=== PATIENT | male | born 1975 | race Caucasian/White ===

== ENCOUNTER 2016-06-15 21:34 | Inpatient (IN) | payer MEDICAID ==
[~2016-06-15] VITALS: Ht 177.8 cm; Wt 95.8 kg
[2016-06-15] MEDS ORDERED: FAMOTIDINE 20 MG INJ IV STA (22:32)
[2016-06-15] MEDS ORDERED: SOD CHLORIDE 0.9% 1,000 ML IV STA (22:32)
[2016-06-15] MEDS ORDERED: IBUP400T22 PO (22:54)
[2016-06-15] MEDS ORDERED: OMEP10SU PO (22:54)
[2016-06-15 23:27] LABS: BASOPHILS % 0.4 % (0.0-2.0); EOSINOPHILS # 0.2 10^3/ul (0.0-0.5); EOSINOPHILS % 2.4 % (0.0-7.0); HEMATOCRIT 19.3 % (42.0-52.0); LYMPHOCYTES # 2.1 10^3/ul (0.8-2.9); MEAN CORPUSCULAR HEMOGLOBIN 23.8 pg (29.0-33.0); MEAN CORPUSCULAR HGB CONC 32.9 g/dl (32.0-37.0); MEAN CORPUSCULAR VOLUME 72.4 fl (82.0-101.0); MEAN PLATELET VOLUME 9.6 fl (7.4-10.4); MONOCYTE # 0.6 10^3/ul (0.3-0.9); MONOCYTES % 9.3 % (0.0-11.0); NEUTROPHIL # 3.5 10^3/ul (1.6-7.5); NEUTROPHILS % 54.9 % (39.0-77.0); PLATELET COUNT 105 10^3/UL (140-440); RED BLOOD COUNT 2.67 10^6/ul (4.70-6.10); RED CELL DISTRIBUTION WIDTH 17.7 % (11.5-14.5); UNCORRECTED WBC 6.3 10^3/ul (4.8-10.8); WHITE BLOOD COUNT 6.3 10^3/ul (4.8-10.8)
[2016-06-15 23:32] LABS: POTASSIUM 4.4 mmol/L (3.5-5.1)
[2016-06-15 23:34] LABS: ALBUMIN/GLOBULIN RATIO 0.88; BILIRUBIN,INDIRECT 0.5 mg/dl (0-1.1); BILIRUBIN,TOTAL 0.5 mg/dl (0.2-1.3); CONDITION 1; CREATININE 0.59 mg/dl (0.61-1.24); LH ANALYZER COMMENTS 1; NUCLEATED RED BLOOD CELLS # 0.1 10^3/ul (0.0-0.0); TOTAL PROTEIN 6.4 g/dl (6.1-8.1)
[2016-06-15 23:35] LABS: CALCIUM 7.9 mg/dl (8.4-10.2)
[2016-06-15 23:37] LABS: HEMOGLOBIN 6.4 g/dl (14.0-18.0)
[2016-06-15] MEDS ORDERED: SOD CHLORIDE 0.9% 250 ML IV ONE (23:47)
[2016-06-15] MEDS ORDERED: SOD CHLORIDE 0.9% 1,000 ML IV SCH (23:53)
[2016-06-16] VITALS (13 sets, daily range): BP systolic 104–180; BP diastolic 53–111; PULSE 80–102; RESP 12–20; TEMP 99.3; Ht 177.8 cm; Wt 95.8 kg
[2016-06-16] MEDS ORDERED: PANTOPRAZOLE 40 MG INJ IV ONE
[2016-06-16] MEDS ORDERED: SOD CHLORIDE 0.9% 1,000 ML IV STA (00:03)
[2016-06-16] MEDS ORDERED: morphine 4 MG/ML VIAL IV STA (00:03)
--- NOTE | 2016-06-16 00:27 | ERA ---
ER Documentation Chief Complaint Date/Time DATE: 06/16/16 TIME: 00:24 Chief Complaint blood in stools x 3 days HPI This is a 40-year-old male with a history of cirrhosis, and previous upper GI bleed who presents to the emergency room for evaluation of dark stools. The patient states that he has had dark stools for the past 3 days. He does state that he is also having some abdominal pain which localizes to the epigastric region and describes as a burning sensation. The patient denies any alcohol use , came to the ER today for evaluation. ROS All systems reviewed and are negative except as per history of present illness. Medications Home Meds Reported Medications Ibuprofen* (Ibuprofen*) 400 Mg Tablet, 400 MG PO Q6H Y for PAIN, TAB 06/15/16 Omeprazole* (Prilosec*) 10 Mg Suspdr.pkt, 10 MG PO BID, PKT 06/15/16 Allergies Allergies: Coded Allergies: No Known Allergy (Unverified , 06/15/16) PMhx/Soc Medical and Surgical Hx: pt denies Medical Hx, pt denies Surgical Hx History of Surgery: No Anesthesia Reaction: No Hx Neurological Disorder: No Hx Respiratory Disorders: No Hx Cardiac Disorders: No Hx Psychiatric Problems: No Hx Miscellaneous Medical Probl: Yes (Gallstones, CIRRHOSIS) Hx Alcohol Use: No Hx Substance Use: No Hx Tobacco Use: No Smoking Status: Never smoker Physical Exam Vitals Vital Signs Date Time Temp Pulse Resp B/P Pulse Ox O2 Delivery O2 Flow Rate FiO2 06/15/16 23:25 99.0 99 17 120/82 100 Room Air 06/15/16 21:38 99.6 117 20 139/72 100 Physical Exam INITIAL VITAL SIGNS: Reviewed by me GENERAL: The patient is well developed and appropriate for usual state of health in no apparent distress HEENT: Pupils equal, round, and reactive to light. EOMI. There is no scleral icterus. NECK: C-spine is soft and supple, there is no meningismus. There is no cervical lymphadenopathy. LUNGS: Clear to auscultation bilaterally. There are no rales, wheezes or rhonchi. HEART: Tachycardic, no murmurs, clicks, rubs or gallops. ABDOMEN: The gastric tenderness to palpation, non-distended. There are bowel sounds in all four quadrants. No rebound or guarding. EXTREMITIES: There is no peripheral cyanosis or edema. No focal swelling or erythema. NEUROLOGICAL: The patient moves all four extremities with 5/5 strength. Cranial nerves II - XII are intact. Normal gait. Alert and oriented SKIN: There is no apparent rash or petechiae. HEME/LYMPHATIC: There is no evidence of excessive bruising or lymphedema. PSYCHIATRIC: The patient does not appear anxious or depressed. Result Diagram: 06/15/16229906/15/16 230 Results 24 hrs Laboratory Tests Test 06/15/16 23:00 Alanine Aminotransferase (ALT/SGPT) 82IU/L Albumin 3.0g/dl Albumin/Globulin Ratio 0.88 Alkaline Phosphatase 167IU/L Anion Gap 13 Aspartate Amino Transf (AST/SGOT) 96IU/L Basophils # Pending Basophils % Pending Blood Morphology Comment Blood Urea Nitrogen 9mg/dl Calcium Level 7.9mg/dl Carbon Dioxide Level 24mmol/L Chloride Level 103mmol/L Creatinine 0.59mg/dl Direct Bilirubin 0.00mg/dl Eosinophils # Pending Eosinophils % Pending Globulin 3.40g/dl Glucose Level 224mg/dl Hematocrit 19.3% Hemoglobin 6.4g/dl Indirect Bilirubin 0.5mg/dl Lipase 307U/L Lymphocytes # Pending Lymphocytes % Pending Mean Corpuscular Hemoglobin 23.8pg Mean Corpuscular Hemoglobin Concent 32.9g/dl Mean Corpuscular Volume 72.4fl Mean Platelet Volume 9.6fl Monocytes # Pending Monocytes % Pending Neutrophils # Pending Neutrophils % Pending Nucleated Red Blood Cells # Pending Nucleated Red Blood Cells % Pending Platelet Count 46845^3/UL Potassium Level 4.4mmol/L Red Blood Count 2.6710^6/ul Red Cell Distribution Width 17.7% Sodium Level 136mmol/L Total Bilirubin 0.5mg/dl Total Protein 6.4g/dl White Blood Count 6.310^3/ul Current Medications Medications (Trade) Dose Ordered Sig/Sharmila Route PRN Reason Start Time Stop Time Status Last Admin Dose Admin Sodium Chloride (NS) 1,000 ml @ 1,000 mls/hr Q1H STAT IV 06/15/16 22:32 06/15/16 23:31 DC 06/15/16 23:10 Famotidine 20 mg 20 mg ONCE STAT IV 06/15/16 22:32 2/8/17 22:34 DC 06/15/16 23:10 Sodium Chloride 250 ml @ 0 mls/hr Q0M ONCE IV 06/15/16 23:47 06/15/16 23:49 DC Sodium Chloride (NS) 1,000 ml @ 80 mls/hr [id number] IV 06/15/16 23:53 06/16/16 12:22 06/16/16 00:08 Ondansetron HCl (Zofran Inj) 4 mg BRIDGE ORDER PRN IV NAUSEA AND/OR VOMITING 06/16/16 00:00 06/16/16 23:59 Acetaminophen (Tylenol Tab) 650 mg ER BRIDGE PRN PO MILD PAIN/FEVER 06/16/16 00:00 06/16/16 23:59 Pantoprazole 80 mg 80 mg ONCE ONCE IV 06/16/16 00:00 06/16/16 00:01 DC 06/16/16 00:09 Sodium Chloride (NS) 1,000 ml @ 1,000 mls/hr Q1H STAT IV 06/16/16 00:03 06/16/16 01:02 Morphine Sulfate (morphine) 4 mg ONCE STAT IV 06/16/16 00:03 06/16/16 00:06 DC 06/16/16 00:11 Procedures/MDM Chest X-ray 1V Interpreted by me: Soft Tissue: No acute abnormalities Bones: No acute abnormalities Mediastinum/Cardiac Silhouette/Lungs: [No acute abnormalities] This 40-year-old male presents to the ER for evaluation of dark stools, and abdominal pain. When I evaluated this patient he did have epigastric tenderness to palpation. Does have a history of previous GI bleed. I did obtain lab work and x-ray. Lab work does show a hemoglobin of 6.4. This patient is guaiac positive on my examination. He is mildly tachycardic, was given 2 L of IV fluid, Protonix, Pepcid, morphine for pain. He will be transfused 2 units of packed red blood cells and will be placed in for admission at this time on the telemetry floor under the care of Dr. Doss. Critical Care: Excluding all billable procedures Time: 35 minutes Treatments/Evaluations: Close monitoring and treatment of unstable vital signs, cardiorespiratory, and neurologic status, while maintaining tight balance of fluid, respiratory, and cardiac interventions. Departure Diagnosis: Primary Impression: Upper GI hemorrhage Additional Impressions: Abdominal pain Occult blood in stools Anemia History of cirrhosis Condition: JOSE RAFAEL Lindsay DO Jun 16, 2016 00:26
[2016-06-16 00:50] LABS: ADD UMIC NO; URINE BILIRUBIN (Dip) NEGATIVE (NEGATIVE); URINE BLOOD (Dip) NEGATIVE (NEGATIVE); URINE COLOR YELLOW (YELLOW); URINE GLUCOSE (Dip) NEGATIVE (NEGATIVE); URINE KETONES (Dip) NEGATIVE (NEGATIVE); URINE LEUKOCYTE ESTERASE (Dip) NEGATIVE (NEGATIVE); URINE NITRITE (Dip) NEGATIVE (NEGATIVE); URINE TOTAL PROTEIN (Dip) NEGATIVE (NEGATIVE); URINE UROBILINOGEN (Dip) 0.2 E.U./dL (0.1-1.0)
--- NOTE | 2016-06-16 01:13 | RADRPT ---
PROCEDURE: CHEST - 1 VIEW CLINICAL INDICATION: 40-year-old male with chest/abdominal pain. TECHNIQUE: A single frontal AP view of the chest was performed portably. The images were reviewed on a PACS workstation. COMPARISON: Chest x-ray July 25, 2013. FINDINGS: The cardiomediastinal silhouette has a normal appearance. There is no evidence for an infiltrate. There is no evidence for congestive heart failure. There is no evidence for pneumothorax. The osseou s structures are intact. IMPRESSION: No evidence for active cardiopulmonary disease. .Zane Gonzalez MD, MD Date Time Electronically viewed and signed by .Zane Gonzalez MD, on 06/16/2016 01:12 .M/
[2016-06-16] MEDS ORDERED: ONDANSETRON 4 MG INJ IV PRN ×2 (02:00)
[2016-06-16] MEDS ORDERED: ACETAMINOPHEN 325 MG TAB PO PRN ×2 (02:00)
[2016-06-16 07:04] LABS: BASOPHILS % 0.2 % (0.0-2.0); EOSINOPHILS # 0.1 10^3/ul (0.0-0.5); EOSINOPHILS % 1.5 % (0.0-7.0); HEMATOCRIT 21.8 % (42.0-52.0); HEMOGLOBIN 7.2 g/dl (14.0-18.0); LYMPHOCYTES # 1.4 10^3/ul (0.8-2.9); LYMPHOCYTES % 24.1 % (15.0-51.0); MEAN CORPUSCULAR HEMOGLOBIN 25.2 pg (29.0-33.0); MEAN CORPUSCULAR HGB CONC 33.1 g/dl (32.0-37.0); MEAN CORPUSCULAR VOLUME 76.3 fl (82.0-101.0); MEAN PLATELET VOLUME 9.4 fl (7.4-10.4); MONOCYTE # 0.6 10^3/ul (0.3-0.9); MONOCYTES % 10.4 % (0.0-11.0); NEUTROPHIL # 3.8 10^3/ul (1.6-7.5); NEUTROPHILS % 63.8 % (39.0-77.0); PLATELET COUNT 79 10^3/UL (140-440); RED BLOOD COUNT 2.85 10^6/ul (4.70-6.10); RED CELL DISTRIBUTION WIDTH 18.6 % (11.5-14.5)
[2016-06-16 07:19] LABS: CONDITION 1; LH ANALYZER COMMENTS 1
[2016-06-16 07:24] LABS: ALBUMIN 2.5 g/dl (3.3-4.9); IRON 14 ug/dl (35-150); POTASSIUM 4.4 mmol/L (3.5-5.1)
[2016-06-16 07:26] LABS: BILIRUBIN,INDIRECT 0.8 mg/dl (0-1.1); BILIRUBIN,TOTAL 0.8 mg/dl (0.2-1.3); CREATININE 0.56 mg/dl (0.61-1.24)
[2016-06-16 07:27] LABS: ALBUMIN/GLOBULIN RATIO 0.75; CALCIUM 7.5 mg/dl (8.4-10.2); PHOSPHORUS 2.4 mg/dl (2.5-4.9); TOTAL PROTEIN 5.8 g/dl (6.1-8.1)
[2016-06-16 07:28] LABS: MAGNESIUM 1.7 mg/dl (1.7-2.5)
[2016-06-16 07:34] LABS: TOTAL IRON BINDING CAPACITY 303 ug/dl (241-421)
[2016-06-16 07:43] LABS: FERRITIN 7.3 ng/ml (17.9-464.0)
[2016-06-16] MEDS ORDERED: OCTREOTIDE 500 MCG in SOD CHLORIDE 0.9% 49 ML IV SCH (10:00)
[2016-06-16] MEDS ORDERED: SOD CHLORIDE 0.9% 250 ML IV* ONE (10:01)
--- NOTE | 2016-06-16 10:25 | HP ---
DATE OF ADMISSION: 06/15/2016 TIME SEEN: 4 a.m. CHIEF COMPLAINT: Dark stool, rectal bleed and abdominal pain. IDENTIFICATION: The patient is a 40-year-old male with a history of decompensated liver cirrhosis w ith a history of esophageal varices status post banding at least 3 times, history of pancreatitis, p eptic ulcer disease, and gallstones who presented to the emergency department with the above stated chief complaint. He stated symptoms have been going on for the past 3 days, worsening before he cam e to the ER. He has a history of GI bleed secondary to esophageal varices and has had ligation prev iously. The last time the patient was admitted here was in September of 2013 for pancreatitis, but prior to that he was admitted here for a gastrointestinal bleed secondary to esophageal varices and is sta tus post ligation. The patient sometimes uses ibuprofen for pain. When the patient presented to the ER, blood pressure was 139/72, heart rate 170, respiratory rate 20 , temperature 99.6, oxygen saturation 100% on room air. Laboratory value shows a hemoglobin of 6.4 with MCV of 72. His glucose was 224. Chest x-ray shows no active cardiopulmonary disease. The patient currently is receiving blood trans fusion and is admitted for a GI evaluation. REVIEW OF SYSTEMS: A 12 review of systems was performed and is negative except as mentioned in HPI. PAST MEDICAL HISTORY: As per HPI. PAST SURGICAL HISTORY: As per HPI. SOCIAL HISTORY: Positive for alcohol use. ALLERGIES: NO KNOWN DRUG ALLERGIES. HOME MEDICATIONS: Ibuprofen as needed. PHYSICAL EXAMINATION: VITAL SIGNS: Blood pressure 132/63, heart rate 99, respiratory rate 19, temperature 98.4, oxygen sa turation 98% on room air. GENERAL: No acute distress, alert and oriented and answering questions appropriately. HEENT: No obvious head deformity. Pupils equal, round and react to light. Extraocular muscles inta ct. CARDIOVASCULAR: Tachycardic with regular rhythm. LUNGS: Clear. ABDOMEN: Soft. There is some discomfort to deep palpation especially in the epigastric area with n o guarding or rebound tenderness, no rigidity. EXTREMITIES: No edema. NEUROLOGIC: No focal deficit. LABORATORY: Pertinent positive labs as mentioned in HPI, including AST of 96, ALT 82, alkaline phos phatase 162, lipase is slightly high at 302, hemoglobin is 6.4 with MCV of 72. IMAGING: Chest x-ray with results as mentioned in the HPI. IMPRESSION: 1. Gastrointestinal bleed, likely from bleeding esophageal varices. 2. History of decompensated liver cirrhosis with a history of esophageal varices status post bandin g x3. 3. History of peptic ulcer disease. 4. History of cholelithiasis. 5. History of pancreatitis. 6. History of alcohol abuse. 7. Abnormal liver enzymes, secondary to alcoholic liver cirrhosis. PLAN: We will keep n.p.o. with IV fluids. Will continue blood transfusion. Will check his iron pr ofile and FOBT. We will place a GI consult. He will be placed on a PPI and I do not the octreotide is warranted at this point. We will provide pain medication as needed. The patient also has a slig htly elevated lipase of 307, so likely also has a mild pancreatitis as well, so again he is going to be n.p.o. and will provide pain medication as needed. Further workup and management per clinical course. Dictated By: MELQUIADES PEDERSON/VERA Conf#: [id number] DID#: [id number]
--- NOTE | 2016-06-16 10:31 | CONS ---
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 Davison Consultation Date/Type/Reason Admit Date/Time Jun 15, 2016 at 23:54 Hx of Present Illness 40 YO M with reports of hematemesis with weakness since Monday. Pt states that previous episode happened over a year ago. During this episode, pt took pain killers and unknown medication without any relief in symptoms. Pt also reports melena stools and epigastric abdominal pain since Monday as well. Pt denies fever, chills, and diarrhea. Pt reports being abstinent from EtOH Mar 14, 2009. Pt denies new medication and smoking. Presently repeat EGD is recommended; however, patient declines procedure due to concerns over new employment. 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 Patient understands risks of not getting scope and he is willing to take that risk and states he will return if symptoms return and/or plan for outpatient EGD. Recommend PPI twice daily and Carafate 4 times daily to treat possible esophageal varix and/or gastric ulcer. Past Medical History Medical History: other (Liver cirrhosis) Past Surgical History Past Surgical Hx: endoscopy (S1 in [address] Davison) Social History Alcohol Use: sober Smoking Status: Never smoker Exam/Review of Systems Vital Signs Vitals Vital Signs Date Time Temp Pulse Resp B/P Pulse Ox O2 Delivery O2 Flow Rate FiO2 06/16/16 08:20 97 06/16/16 07:09 97.7 18 104/60 90 06/16/16 02:04 Room Air Intake and Output 06/15/16 06/15/16 06/16/16 15:00 23:00 07:00 Intake Total 700 ml Balance 700 ml Exam Constitutional: alert, oriented, well developed Psych: nl mood/affect, no complaints Head: atraumatic Eyes: EOMI, nl conjunctiva, nl lids ENMT: nl external ears & nose, nl lips & teeth, nl nasal mucosa & septum Respiratory: clear to auscultation Cardiovascular: regular rate and rhythm Gastrointestinal: non-tender, soft Musculoskeletal: nl extremities to inspection Neurological: TRAINING OFFICER II-XII intact Results Result Diagram: 06/16/16 0610 06/16/16 0610 Results 24 hrs Laboratory Tests Test 06/15/16 23:00 06/15/16 23:20 06/16/16 06:10 Alanine Aminotransferase (ALT/SGPT) 82 H 79 H Albumin 3.0 L 2.5 L Albumin/Globulin Ratio 0.88 0.75 Alkaline Phosphatase 167 H 164 H Anion Gap 13 11 Aspartate Amino Transf (AST/SGOT) 96 H 87 H Basophils # 0.0 Pending Basophils % 0.4 Pending Blood Morphology Comment Blood Urea Nitrogen 9 11 Calcium Level 7.9 L 7.5 L Carbon Dioxide Level 24 22 Chloride Level 103 107 Creatinine 0.59 L 0.56 L Differential Comment AUTO w/SCAN Direct Bilirubin 0.00 0.00 Eosinophils # 0.2 Pending Eosinophils % 2.4 Pending Globulin 3.40 H 3.30 H Glucose Level 224 H 162 Hematocrit 19.3 #L 21.8 L Hemoglobin 6.4 #*L 7.2 L Indirect Bilirubin 0.5 0.8 Lipase 307 H Lymphocytes # 2.1 Pending Lymphocytes % 33.0 Pending Mean Corpuscular Hemoglobin 23.8 L 25.2 L Mean Corpuscular Hemoglobin Concent 32.9 33.1 Mean Corpuscular Volume 72.4 L 76.3 L Mean Platelet Volume 9.6 9.4 Monocytes # 0.6 Pending Monocytes % 9.3 Pending Neutrophils # 3.5 Pending Neutrophils % 54.9 Pending Nucleated Red Blood Cells # 0.1 H Pending Nucleated Red Blood Cells % 2.0 H Pending Platelet Count 105 L 79 #L Potassium Level 4.4 4.4 Red Blood Count 2.67 #L 2.85 L Red Cell Distribution Width 17.7 H 18.6 H Sodium Level 136 136 Total Bilirubin 0.5 0.8 Total Protein 6.4 5.8 L White Blood Count 6.3 # 6.0 Urine Bilirubin NEGATIVE Urine Clarity CLEAR Urine Color YELLOW Urine Glucose NEGATIVE Urine Hemoglobin NEGATIVE Urine Ketones NEGATIVE Urine Leukocyte Esterase NEGATIVE Urine Nitrite NEGATIVE Urine Specific [place] 1.025 Urine Total Protein NEGATIVE Urine Urobilinogen 0.2 E.U./dL Urine pH 6.0 Ferritin 7.3 L Iron Level 14 L Magnesium Level 1.7 Percent Iron Saturation 5 L Phosphorus Level 2.4 L Total Iron Binding Capacity 303 Medications Medications Current Medications Sodium Chloride (NS) 1,000 ml @ 80 mls/hr [id number] IV Last administered on 00:08; Admin Dose 80 MLS/HR; Start 06/15/16 at 23:53; Stop 06/16/16 at 12:22 Ondansetron HCl (Zofran Inj) 4 mg Q6H PRN IV NAUSEA AND/OR VOMITING; Start 06/16 at 02:00 Acetaminophen 650 mg 650 mg Q6H PRN PO PAIN AND OR ELEVATED TEMP Last administered on 06/16/16 03:15; Admin Dose 650 MG; Start 06/16/16 at 02:00 Octreotide Acetate/Sodium Chloride (Sandostatin/NS) 50 ml @ 2.5 mls/hr Q20H IV ; Start 06/16/16 at 10:00 DIMITRIS RODRIGUEZ Jun 16, 2016 10:31
--- NOTE | 2016-06-16 13:45 | PN ---
Date/Time of Note Date/Time of Note DATE: 06/16/16 TIME: 13:38 Assessment/Plan VTE Prophylaxis VTE Prophylaxis Intervention: SCD's Lines/Catheters IV Catheter Type (from [facility]): Sal[facility] Urinary Cath still in place: No Assessment/Plan Assessment/Plan 1. Gastrointestinal bleed, likely from bleeding esophageal varices, patient declines EGD, on PPI and carafate, follow up with H/H 2. Anemia from GI bleeding, getting PRBC transfusion, follow up with H/H 3. Thrombocytopenia, due to splenomegaly, follow up wiht PLT 4. Alcoholic liver disease with cirrhosis with a history of esophageal varices status post banding x3.s/p TIPS 5. History of peptic ulcer disease. 6. History of cholelithiasis. 7. History of pancreatitis. 8. History of alcohol abuse. Subjective 24 Hr Interval Summary Free Text/Dictation No pain. No BM since last night Exam/Review of Systems Vital Signs Vitals Vital Signs Date Time Temp Pulse Resp B/P Pulse Ox O2 Delivery O2 Flow Rate FiO2 06/16/16 12:13 80 06/16/16 11:04 97.8 18 110/67 98 06/16/16 02:04 Room Air Intake and Output 06/15/16 06/15/16 06/16/16 15:00 23:00 07:00 Intake Total 700 ml Balance 700 ml Exam Constitutional: alert, oriented, well developed Psych: nl mood/affect, no complaints Head: atraumatic, normocephalic Eyes: EOMI, nl conjunctiva ENMT: nl external ears & nose, nl lips & teeth, nl nasal mucosa & septum Neck: non-tender, supple Respiratory: clear to auscultation, normal air movement, No congested cough, No crackles/rales, No diminished breath sounds, No intercostal retraction, No labored breathing, No other, No respirations, No tactile fremitus, No wheezing Cardiovascular: nl pulses, regular rate and rhythm, No S3, No S4, No bruits, No diastolic murmur, No edema, No gallop, No irregular rhythm, No jugular venous distention (JVD), No murmurs/extra sounds, No other, No rub, No systolic murmur Gastrointestinal: nl liver, spleen, non-tender, soft, No ascites, No bowel sounds, No distended, No firm, No hepatomegaly, No mass , No other, No rebound or guarding, No splenomegaly, No surgical scars, No tender Musculoskeletal: nl extremities to inspection Extremities: normal pulses, No calf tenderness, No clubbing, No cyanosis, No edema, No palpable cord, No pitting pedal edema, No tenderness Neurological: BENDER HELPER II-XII intact, nl mental status, nl speech, nl strength Skin: rash or lesions Lymph: nl lymph nodes Results Result Diagram: 06/16/16 0610 06/16/16 0610 Results 24 hrs Laboratory Tests Test 06/15/16 23:00 06/15/16 23:20 06/16/16 06:10 Alanine Aminotransferase (ALT/SGPT) 82 H 79 H Albumin 3.0 L 2.5 L Albumin/Globulin Ratio 0.88 0.75 Alkaline Phosphatase 167 H 164 H Anion Gap 13 11 Aspartate Amino Transf (AST/SGOT) 96 H 87 H Basophils # 0.0 0.0 Basophils % 0.4 0.2 Blood Morphology Comment Blood Urea Nitrogen 9 11 Calcium Level 7.9 L 7.5 L Carbon Dioxide Level 24 22 Chloride Level 103 107 Creatinine 0.59 L 0.56 L Differential Comment AUTO w/SCAN AUTO w/SCAN Direct Bilirubin 0.00 0.00 Eosinophils # 0.2 0.1 Eosinophils % 2.4 1.5 Globulin 3.40 H 3.30 H Glucose Level 224 H 162 Hematocrit 19.3 #L 21.8 L Hemoglobin 6.4 #*L 7.2 L Indirect Bilirubin 0.5 0.8 Lipase 307 H Lymphocytes # 2.1 1.4 Lymphocytes % 33.0 24.1 Mean Corpuscular Hemoglobin 23.8 L 25.2 L Mean Corpuscular Hemoglobin Concent 32.9 33.1 Mean Corpuscular Volume 72.4 L 76.3 L Mean Platelet Volume 9.6 9.4 Monocytes # 0.6 0.6 Monocytes % 9.3 10.4 Neutrophils # 3.5 3.8 Neutrophils % 54.9 63.8 Nucleated Red Blood Cells # 0.1 H 0.0 Nucleated Red Blood Cells % 2.0 H 0.0 Platelet Count 105 L 79 #L Potassium Level 4.4 4.4 Red Blood Count 2.67 #L 2.85 L Red Cell Distribution Width 17.7 H 18.6 H Sodium Level 136 136 Total Bilirubin 0.5 0.8 Total Protein 6.4 5.8 L White Blood Count 6.3 # 6.0 Urine Bilirubin NEGATIVE Urine Clarity CLEAR Urine Color YELLOW Urine Glucose NEGATIVE Urine Hemoglobin NEGATIVE Urine Ketones NEGATIVE Urine Leukocyte Esterase NEGATIVE Urine Nitrite NEGATIVE Urine Specific [place] 1.025 Urine Total Protein NEGATIVE Urine Urobilinogen 0.2 E.U./dL Urine pH 6.0 Ferritin 7.3 L Iron Level 14 L Large Platelets FEW Magnesium Level 1.7 Percent Iron Saturation 5 L Phosphorus Level 2.4 L Total Iron Binding Capacity 303 Medications Medications Current Medications Ondansetron HCl (Zofran Inj) 4 mg Q6H PRN IV NAUSEA AND/OR VOMITING; Start 06/16 at 02:00 Acetaminophen 650 mg 650 mg Q6H PRN PO PAIN AND OR ELEVATED TEMP Last administered on 06/16/16t 03:15; Admin Dose 650 MG; Start 06/16/16 at 02:00 Octreotide Acetate/Sodium Chloride (Sandostatin/NS) 50 ml @ 2.5 mls/hr Q20H IV ; Start 06/16/16 at 10:00 RAJIV MEDINA MD Jun 16, 2016 13:45
[2016-06-16 19:58] LABS: HEMATOCRIT 23.9 % (42.0-52.0); HEMOGLOBIN 7.6 g/dl (14.0-18.0)
== END 2016-06-16 21:30 | disposition left against medical advice (07) | DRG 432 ==
LOC: E/R 21:34 → TEL 23:54
PROVIDERS: ADMIT Internal Medicine; ATTEND Internal Medicine
PROC: 30233N1 Transfusion of Nonautologous Red Blood Cells into Peripheral Vein, Percutaneous Approach (ICD-10-PCS; principal; 2016-06-15)
DX: K70.30 Alcoholic cirrhosis of liver without ascites (principal); I85.11 Secondary esophageal varices with bleeding; D69.59 Other secondary thrombocytopenia; D50.0 Iron deficiency anemia secondary to blood loss (chronic); F10.20 Alcohol dependence, uncomplicated
CPT/HCPCS: 36415; 36430; 71010; 80053; 81003; 82270; 82728; 83540; 83690; 83735; 84100; 85014; 85018; 85025; 86850; 86900; 86901; 86920; 96374; 96375; C9113; J2270; J2354; J2405; J7030; J7040; P9016

== ENCOUNTER 2016-06-22 21:37 | Emergency (ER) | payer MEDICAID ==
[~2016-06-22] VITALS: Ht 177.8 cm; Wt 98.0 kg
[~2016-06-22 21:37] MED LIST: IBUP400T22 PO
[2016-06-22 21:41] VITALS: Ht 177.8 cm; Wt 98.0 kg
--- NOTE | 2016-06-22 22:33 | ERD ---
ER Documentation Chief Complaint Date/Time DATE: 06/22/16 TIME: 22:27 Chief Complaint diffuse abd pain x 4 days. feels bloated HPI 40-year-old male presents to emergency department for complaints of generalized abdominal pain and diffuse swelling for the last 4 days. Patient has history of liver cirrhosis, history of ascites before. Patient currently is not following up any liver specialist. Currently does not have a primary care doctor. Patient does not take any medications at this time. Patient does not have any fever or chills. Patient denies any nausea or vomiting. Patient denies any flank pain. Patient denies any lower leg swelling. Patient denies any blood in the stool or black stool. Patient denies vomiting blood. Patient describes the pain as bloating dull pain, 3/10 scale, and is not better or worse with anything. Patient denies any shortness of breath. Patient denies any chest pain. ROS All systems reviewed and are negative except as per history of present illness. Medications Home Meds Reported Medications Ibuprofen* (Ibuprofen*) 400 Mg Tablet, 400 MG PO Q6H Y for PAIN, TAB 06/15/16 Allergies Allergies: Coded Allergies: No Known Allergy (Unverified , 06/15/16) PMhx/Soc History of Surgery: Yes (esophageal banding x3) Anesthesia Reaction: No Hx Neurological Disorder: No Hx Respiratory Disorders: No Hx Cardiac Disorders: Yes (GIB) Hx Psychiatric Problems: No Hx Miscellaneous Medical Probl: Yes (liver cirrhosis) Hx Alcohol Use: Yes (sober for 9 yrs) Hx Substance Use: No Hx Tobacco Use: No FmHx Family History: No coronary disease, No diabetes, No other Physical Exam Vitals Vital Signs Date Time Temp Pulse Resp B/P Pulse Ox O2 Delivery O2 Flow Rate FiO2 06/22/16 21:41 98.3 102 20 140/71 100 Physical Exam GENERAL: The patient is well developed and appropriate for usual state of health, in no apparent distress. CHEST: Clear to auscultation bilaterally. There are no rales, wheezes or rhonchi. HEART: Regular rate and rhythm. No murmurs, clicks, rubs or gallops. No S3 or S4. ABDOMEN: Soft, mildly distended but nontender. Good bowel sounds. No rebound or guarding. No gross peritonitis. No gross organomegaly or masses. No Vargas sign or McBurney point tenderness. BACK: No midline or flank tenderness. EXTREMITIES: Equal pulses bilaterally. There is no peripheral clubbing, cyanosis or edema. No focal swelling or erythema. Full range of motion. Grossly neurovascularly intact. NEURO: Alert and oriented. Cranial nerves 2-12 intact. Motor strength in all 4 extremities with 5/5 strength. Sensation grossly intact. Normal speech and gait. SKIN: There is no apparent rash or petechia. The skin is warm and dry. HEMATOLOGIC AND LYMPHATIC: There is no evidence of excessive bruising or lymphedema. No gross cervical, axillary, or inguinal lymphadenopathy. Result Diagram: 06/22/16221406/22/162214 Results 24 hrs Laboratory Tests Test 06/22/16 22:15 Alanine Aminotransferase (ALT/SGPT) 51IU/L Albumin 3.0g/dl Albumin/Globulin Ratio 0.88 Alkaline Phosphatase 201IU/L Anion Gap 14 Aspartate Amino Transf (AST/SGOT) 46IU/L Basophils # 10^3/ul Basophils % % Blood Morphology Comment Blood Urea Nitrogen 8mg/dl Calcium Level 8.1mg/dl Carbon Dioxide Level 26mmol/L Chloride Level 102mmol/L Creatinine 0.62mg/dl Direct Bilirubin 0.00mg/dl Eosinophils # 10^3/ul Eosinophils % % Globulin 3.40g/dl Glucose Level 215mg/dl Hematocrit 23.4% Hemoglobin 7.7g/dl Indirect Bilirubin 0.5mg/dl Lipase 150U/L Lymphocytes # 10^3/ul Lymphocytes % % Mean Corpuscular Hemoglobin 26.5pg Mean Corpuscular Hemoglobin Concent 32.8g/dl Mean Corpuscular Volume 80.7fl Mean Platelet Volume 9.3fl Monocytes # 10^3/ul Monocytes % % Neutrophils # 10^3/ul Neutrophils % % Nucleated Red Blood Cells # 10^3/ul Platelet Count 9410^3/UL Potassium Level 4.1mmol/L Red Blood Count 2.9110^6/ul Red Cell Distribution Width 20.9% Sodium Level 138mmol/L Total Bilirubin 0.5mg/dl Total Protein 6.4g/dl Urine Bilirubin NEGATIVE Urine Clarity CLEAR Urine Color YELLOW Urine Glucose NEGATIVE% Urine Hemoglobin NEGATIVE Urine Ketones TRACE Urine Leukocyte Esterase NEGATIVE Urine Nitrite NEGATIVE Urine Specific [place] >=1.030 Urine Total Protein NEGATIVE Urine Urobilinogen 0.2 E.U./dL Urine pH 6.0 White Blood Count 3.710^3/ul I discussed the laboratory tests results with my attending physician, Dr. Keyes , upon discussion with the case, patient needs to see outpatient agriscience instructor specialist, this time, paracentesis is not necessary, patient does not have any shortness of breath, patient's ascites is not causing respiratory distress and abdomen is not that distended that needs to have margin stat paracentesis. Patient was counseled that he needs to see a agriscience instructor specialist, possible outpatient drainage of fluid from abdomen. This is as per recommendation by my attending physician, Dr. Keyes. Laboratory test results was also reviewed with him. Patient has pancytopenia which likely is consistent with chronic liver cirrhosis. Procedures/MDM Medical Decision Making: THE patient's abdominal pain is most likely from the buildup of possible third spacing fluid in the abdomen, at this time, it is not greatly distended that needs to be drained at this time, as per recommendation by my attending physician, Dr. Keyes, outpatient management is appropriate at this time, possibly outpatient radiology intervention for removal of fluids. Patient is to see hepatology specialist for further management of cirrhosis. Patient does not have any active bleeding at this time, patient has chronic pancytopenia. Most likely this is from his liver cirrhosis. Patient appears well and is hemodynamically stable. No symptoms of hemodynamic instability. There is low suspicion for abdominal emergencies at this time. Patients abdominal exam is normal at this time. As per discussion with Dr. Keyes, radiology exam is not indicated at this time, no specific abdominal tenderness noted.. There is low suspicion for appendicitis, cholecystitis, abdominal aortic aneurysms or peritonitis at this time. There is low suspicion for sepsis. Patient appears well and is hemodynamically stable. Disposition: Home. Condition: Stable Prescription for ferrous sulfate, Colace, tramadol Instructions: Patient is advised to take medications as prescribed. Patient is advised to rest, avoid excessive fluid intake, see liver specialist. Patient is advised that if symptoms are worse, severe abdominal pain, uncontrolled vomiting , high fever, severe flank pain, worst signs and symptoms, to return to the emergency department immediately. Otherwise, patient can follow up with primary care doctor in 5-7 days. Establish primary care and see hepatic specialist, resources were given to the patient. Return for any worsening symptoms Departure Diagnosis: Primary Impression: Abdominal pain Abdominal location: generalized Qualified Code: R10.84 - Generalized abdominal pain Additional Impressions: Pancytopenia History of cirrhosis of liver Condition: Stable Patient Instructions: Abdominal Pain, Cirrhosis of the Liver Additional Instructions: Patient is advised to take medications as prescribed. Patient is advised to rest , avoid excessive fluid intake, see liver specialist. Patient is advised that if symptoms are worse, severe abdominal pain, uncontrolled vomiting, high fever , severe flank pain, worst signs and symptoms, to return to the emergency department immediately. Otherwise, patient can follow up with primary care doctor in 5-7 days. Establish primary care and see hepatic specialist, resources were given to the patient. Return for any worsening symptoms LYNNETTE RODRIGUEZ NP Jun 22, 2016 22:33
[2016-06-22 23:11] LABS: POTASSIUM 4.1 mmol/L (3.5-5.1)
[2016-06-22 23:13] LABS: ALBUMIN/GLOBULIN RATIO 0.88; BILIRUBIN,INDIRECT 0.5 mg/dl (0-1.1); BILIRUBIN,TOTAL 0.5 mg/dl (0.2-1.3); CREATININE 0.62 mg/dl (0.61-1.24); HEMATOCRIT 23.4 % (42.0-52.0); HEMOGLOBIN 7.7 g/dl (14.0-18.0); MEAN CORPUSCULAR HEMOGLOBIN 26.5 pg (29.0-33.0); MEAN CORPUSCULAR HGB CONC 32.8 g/dl (32.0-37.0); MEAN CORPUSCULAR VOLUME 80.7 fl (82.0-101.0); MEAN PLATELET VOLUME 9.3 fl (7.4-10.4); PLATELET COUNT 94 10^3/UL (140-440); RED BLOOD COUNT 2.91 10^6/ul (4.70-6.10); RED CELL DISTRIBUTION WIDTH 20.9 % (11.5-14.5); TOTAL PROTEIN 6.4 g/dl (6.1-8.1); UNCORRECTED WBC 3.7 10^3/ul (4.8-10.8); WHITE BLOOD COUNT 3.7 10^3/ul (4.8-10.8)
[2016-06-22 23:14] LABS: CALCIUM 8.1 mg/dl (8.4-10.2)
[2016-06-22 23:18] LABS: ADD UMIC NO; URINE BILIRUBIN (Dip) NEGATIVE (NEGATIVE); URINE BLOOD (Dip) NEGATIVE (NEGATIVE); URINE COLOR YELLOW (YELLOW); URINE GLUCOSE (Dip) NEGATIVE (NEGATIVE); URINE KETONES (Dip) TRACE (NEGATIVE); URINE LEUKOCYTE ESTERASE (Dip) NEGATIVE (NEGATIVE); URINE NITRITE (Dip) NEGATIVE (NEGATIVE); URINE TOTAL PROTEIN (Dip) NEGATIVE (NEGATIVE); URINE UROBILINOGEN (Dip) 0.2 E.U./dL (0.1-1.0)
[2016-06-22 23:22] LABS: CONDITION 1; LH ANALYZER COMMENTS 1; SUSPECT 1
[2016-06-22] MEDS ORDERED: TRAM50TA2 PO (23:36)
[2016-06-22] MEDS ORDERED: DOCU-144 PO (23:36)
[2016-06-22] MEDS ORDERED: FER325 PO (23:36)
[2016-06-23 00:02] VITALS: BP 115/79; PULSE 68; RESP 18; TEMP 98.3
[2016-06-23 00:40] LABS: EOSINOPHILS # 0.2 10^3/ul (0.0-0.5); LYMPHOCYTES # 0.9 10^3/ul (0.8-2.9); MONOCYTE # 0.3 10^3/ul (0.3-0.9); NEUTROPHIL # 2.4 10^3/ul (1.6-7.5); PLATELET ESTIMATE PLT APPEAR DECREASED
== END 2016-06-23 00:04 | disposition home or self-care (01) ==
LOC: FTE 21:37
DX: R10.84 Generalized abdominal pain (principal); D61.818 Other pancytopenia; K74.60 Unspecified cirrhosis of liver
CPT/HCPCS: 36415; 80053; 81003; 83690; 85025; Z7502; 99283

== ENCOUNTER 2016-12-19 13:30 | Inpatient (IN) | payer MEDICAID ==
[2016-12-19] VITALS (14 sets, daily range): BP systolic 108–134; BP diastolic 53–83; PULSE 89–106; RESP 13–21; Ht 172.7 cm; Wt 87.8 kg
[~2016-12-19] VITALS: Ht 172.7 cm; Wt 87.8 kg
[~2016-12-19 13:30] MED LIST changes: +DOCU-144 PO; +FER325 PO; +TRAM50TA2 PO
--- NOTE | 2016-12-19 14:41 | ERA ---
ER Documentation Chief Complaint Date/Time DATE: 12/19/16 TIME: 14:40 Chief Complaint Bloody stool HPI The patient is a 41-year-old male, presenting to the ER because of bloody stool for the last 4 days, worse today. He has similar symptoms previously found GI bleed. He denies fever, chills, neck pain, chest pain, dyspnea, complaints of epigastric abdominal pain, denies nausea, vomiting, dysuria, diarrhea. He does not smoke nor drink. He did have EGD about 2 years ago and was admitted recently about 6 months ago for recurrent GI bleed Past medical history: Cirrhosis, history of GI bleed, anemia, history of, cytopenia, peptic ulcer disease, cholelithiasis, history of pancreatitis Past medical history: History of esophageal banding ROS All systems reviewed and are negative except as per history of present illness. Medications Home Meds Discontinued Reported Medications Ibuprofen* (Ibuprofen*) 400 Mg Tablet, 400 MG PO Q6H Y for PAIN, TAB 06/15/16 Discontinued Scripts Tramadol HCl (Tramadol HCl) 50 Mg Tablet, 50 MG PO Q6 Y for SEVERE PAIN LEVEL 7- 10, #20 TAB Prov:LYNNETTE RODRIGUEZ [employer]ACLE ENGINEER 06/22/16 Docusate Sodium* (Colace*) 100 Mg Capsule, 100 MG PO TID, #30 CAP Prov:LYNNETTE RODRIGUEZ ORACLE ENGINEER 06/22/16 Ferrous Sulfate* (Ferrous Sulfate*) 325 Mg Tabec, 325 MG PO BID, #60 TAB Prov:LYNNETTE RODRIGUEZ [employer]ACLE ENGINEER 06/22/16 Allergies Allergies: Coded Allergies: No Known Allergy (Unverified , 12/19/16) PMhx/Soc History of Surgery: Yes (esophageal banding x3) Anesthesia Reaction: No Hx Neurological Disorder: No Hx Respiratory Disorders: No Hx Cardiac Disorders: Yes (GIB) Hx Psychiatric Problems: No Hx Miscellaneous Medical Probl: Yes (liver cirrhosis) Hx Alcohol Use: Yes (sober for 9 yrs) Hx Substance Use: No Hx Tobacco Use: No Smoking Status: Never smoker Physical Exam Vitals Vital Signs Date Time Temp Pulse Resp B/P Pulse Ox O2 Delivery O2 Flow Rate FiO2 12/19/16 13:39 99.2 106 18 141/79 100 Physical Exam Const: No acute distress. Head: Atraumatic. Eyes: Icteric Conjunctiva.Pale ENT: Normal External Ears, Nose and Mouth. Neck: Full range of motion. No meningismus. Resp: Clear to auscultation bilaterally. Cardio: Regular rate and rhythm. Abd: Soft, non distended, normal bowel sounds, mild epigastric tender.. No rigidity, rebound, CVA tenderness Skin: No petechiae or rashes. Back: No midline or flank tenderness. Ext: No cyanosis, or edema. Neur: Awake and alert. No focal deficit Psych: Normal Mood and Affect. Result Diagram: 12/19/16 1501 12/19/16 1501 Results 24 hrs Laboratory Tests Test 12/19/16 14:00 12/19/16 15:01 Iron Level 85ug/dl Total Iron Binding Capacity 364ug/dl Percent Iron Saturation 23% SAT White Blood Count 7.710^3/ul Red Blood Count 3.6110^6/ul Hemoglobin 6.7g/dl Hematocrit 22.5% Mean Corpuscular Volume 62.3fl Mean Corpuscular Hemoglobin 18.6pg Mean Corpuscular Hemoglobin Concent 29.8g/dl Red Cell Distribution Width 21.9% Platelet Count 8810^3/UL Mean Platelet Volume fl Neutrophils % % Segmented Neutrophils % (Manual) 65% Lymphocytes % % Lymphocytes % (Manual) 29% Monocytes % % Monocytes % (Manual) 4% Eosinophils % % Eosinophils % (Manual) 2% Basophils % % Nucleated Red Blood Cells % 1% Neutrophils # (Manual) 10^3/ul Absolute Lymphocytes (Manual) 2.210^3/ul Lymphocytes # 10^3/ul Monocytes # 10^3/ul Absolute Monocytes (Manual) 0.310^3/ul Eosinophils # 10^3/ul Basophils # 10^3/ul Nucleated Red Blood Cells # 10^3/ul Platelet Estimate DECREASED Polychromasia 1+ Hypochromasia 1+ Poikilocytosis 1+ Anisocytosis 2+ Microcytosis 2+ Prothrombin Time 16.5Sec Prothrombin Time Ratio 1.3 INR International Normalized Ratio 1.32 Activated Partial Thromboplast Time 31.3Sec Sodium Level 135mmol/L Potassium Level 4.2mmol/L Chloride Level 105mmol/L Carbon Dioxide Level 25mmol/L Anion Gap 9 Blood Urea Nitrogen 17mg/dl Creatinine 0.60mg/dl Glucose Level 172mg/dl Calcium Level 8.5mg/dl Total Bilirubin 0.8mg/dl Direct Bilirubin 0.00mg/dl Indirect Bilirubin 0.8mg/dl Aspartate Amino Transf (AST/SGOT) 55IU/L Alanine Aminotransferase (ALT/SGPT) 65IU/L Alkaline Phosphatase 119IU/L Total Protein 6.5g/dl Albumin 3.2g/dl Globulin 3.30g/dl Albumin/Globulin Ratio 0.96 Lipase 238U/L Ethyl Alcohol Level < 10.0mg/dl Procedures/MDM UA is pending [place] [id number] Radiology Main Line: [phone] DIAGNOSTIC IMAGING REPORT Patient: DAIJA DUKE : 1975 Age: 41 Sex: M MR #: [id number] DOS: 12/19/16 1418 Ordering MD: ASIM BHATT PA-C Location: E/R Room/Bed: PROCEDURE: XR Chest AP portable CLINICAL INDICATION: Abdominal pain TECHNIQUE: An AP portable radiograph of the chest was submitted. COMPARISON: 06/16/2016 FINDINGS: Support Hardware: None Cardiovascular: The cardiovascular silhouette appears unremarkable. Lung Smith: The lung smith appear clear with no nodule, alveolar infiltrate, or interstitial prominence evident. Pleural Spaces: No pneumothorax or pleural effusion is identified. Osseous Structures: The osseous structures appear intact. Soft Tissues: The soft tissues appear unremarkable. IMPRESSION: Stable and unremarkable portable chest. Physician Payton Date Time Electronically viewed and signed by Physician Payton on 12/19/2016 15:28 RH/ CC: ASIM BHATT PA-C MEDICAL MAKING DECISION: The patient is a 41-year-old male, presenting to the ER because of acute gastrointestinal bleeding, most likely upper gastrointestinal bleeding due to esophageal varices. I have ordered to transfuse him 2 units of packed red blood cell. He is able to go to telemetry and will need to have emergent EGD for further evaluation The differential diagnoses considered include but are not limited to gastritis, peptic ulcer disease, esophageal varices, [place]-Car[place] tear, carcinoma, polyp , hemorrhoid, fissure, diverticulosis, angiodysplasia. Critical Care: Time: 35 minutes excluding all billable procedures. Treatments/Evaluations: Close monitoring and treatment of unstable vital signs, cardiorespiratory, and neurologic status, while maintaining tight balance of fluid, respiratory, and cardiac interventions. Departure Diagnosis: Primary Impression: GI bleed Condition: Stable Comments I discussed the findings with the patient. I discussed the patient with the on- call hospitalist Dr. Bhatt at who was made aware of the lab, the treatment, the patient condition. The patient is admitted to [facility] Triana MD Dec 19, 2016 14:41
--- NOTE | 2016-12-19 15:29 | RADRPT ---
PROCEDURE: XR Chest AP portable CLINICAL INDICATION: Abdominal pain TECHNIQUE: An AP portable radiograph of the chest was submitted. COMPARISON: 06/16/2016 FINDINGS: Support Hardware: None Cardiovascular: The cardiovascular silhouette appears unremarkable. Lung Sanchez: The lung sanchez appear clear with no nodule, alveolar infiltrate, or interstitial promi nence evident. Pleural Spaces: No pneumothorax or pleural effusion is identified. Osseous Structures: The osseous structures appear intact. Soft Tissues: The soft tissues appear unremarkable. IMPRESSION: Stable and unremarkable portable chest. Physician Payton Date Time Electronically viewed and signed by Franca Haque Physician on 12/19/2016 15:28 RH/
[2016-12-19 15:39] LABS: ABNORMAL IP MESSAGE 1; HEMATOCRIT 22.5 % (42.0-52.0); MEAN CORPUSCULAR HEMOGLOBIN 18.6 pg (29.0-33.0); MEAN CORPUSCULAR HGB CONC 29.8 g/dl (32.0-37.0); MEAN CORPUSCULAR VOLUME 62.3 fl (82.0-101.0); NUCLEATED RED BLOOD CELLS% 0.3 /100WBC (0.0-0.0); PLATELET COUNT 88 10^3/UL (140-415); POSITIVE DIFF @See below; RED BLOOD COUNT 3.61 10^6/ul (4.70-6.10); RED CELL DISTRIBUTION WIDTH 21.9 % (11.5-14.5); WHITE BLOOD COUNT 7.7 10^3/ul (4.8-10.8)
[2016-12-19 15:45] LABS: HEMOGLOBIN 6.7 g/dl (14.0-18.0)
[2016-12-19 15:54] LABS: INR 1.32; PROTIME 16.5 Sec (12.2-14.2); PT RATIO 1.3
[2016-12-19 15:55] LABS: PARTIAL THROMBOPLASTIN TIME 31.3 Sec (25.0-35.0)
[2016-12-19 15:58] LABS: ALANINE AMINOTRANSFERASE 65 IU/L (13-69); ALBUMIN 3.2 g/dl (3.3-4.9); ALBUMIN/GLOBULIN RATIO 0.96; ALKALINE PHOSPHATASE 119 IU/L (42-121); ANION GAP 9 (8-16); ASPARTATE AMINO TRANSFERASE 55 IU/L (15-46); BILIRUBIN,INDIRECT 0.8 mg/dl (0-1.1); BILIRUBIN,TOTAL 0.8 mg/dl (0.2-1.3); BLOOD UREA NITROGEN 17 mg/dl (7-20); CALCIUM 8.5 mg/dl (8.4-10.2); CARBON DIOXIDE 25 mmol/L (21-31); CHLORIDE 105 mmol/L (97-110); GLUCOSE 172 mg/dl (70-220); POTASSIUM 4.2 mmol/L (3.5-5.1); SODIUM 135 mmol/L (135-144); TOTAL PROTEIN 6.5 g/dl (6.1-8.1)
[2016-12-19 15:59] LABS: ETHANOL < 10.0 mg/dl
[2016-12-19 16:19] LABS: ANISOCYTOSIS 2+ (0-0); EOSINOPHILS % (M) 2 % (0-7); ERYTHROBLAST% (NRBC) (M) 1 % (0-0); HYPOCHROMASIA 1+ (0-0); MICROCYTOSIS 2+ (0-0); MONOCYTES % (M) 4 % (0-11); PLATELET ESTIMATE DECREASED; POIKILOCYTOSIS 1+ (0-0); POLYCHROMASIA 1+ (0-0)
--- NOTE | 2016-12-19 16:58 | HP ---
Date/Time of Note Date/Time of Note DATE: 12/19/16 TIME: 16:50 Assessment/Plan VTE Prophylaxis VTE Prophylaxis Intervention: SCD's Assessment/Plan Chief Complaint/Hosp Course Impression and plan 1. GI bleed. Patient with reported multiple bloody bowel movements. Placed on Protonix and Carafate for now. City Recorder to be consulted. Transfuse PRBC. Monitor serial H&H. 2. Anemia from #1. Monitor H&H. Patient transfused PRBC. 3. Thrombocytopenia. Likely secondary to underlying history of alcoholic liver cirrhosis. Monitor H&H for now. Monitor level. Transfuse blood products as needed. 4. History of alcoholic liver disease. No further reports of alcohol consumption. Monitor for now. 5. History of esophageal varices status post banding and TIPS. City Recorder to be consulted. We will follow-up 6. History of GERD. Start on PPI medication. admission process time is greater than 40 minutes Discussed plan of care with Dr. Gallego Problems: HPI/ROS Admit Date/Time Admit Date/Time Hx of Present Illness This is a 41-year-old male with history of alcoholic liver disease with cirrhosis with history of esophageal varices status post banding 3 as well as TIPS procedure, peptic ulcer disease, cholelithiasis, alcohol abuse (quit 9 years ago), pancreatitis, anemia from GI bleed, who came to [facility] due to reports of bloody stool since December 16, 2016. Of note patient was previously admitted and discharged on June 2016 where he came again for lower GI bleed and bloody stool however did not receive EGD even though recommended due to reports of concerns of his employment. Of note patient did state that he took Protonix and Carafate after his discharge for 30 days but never refilled his prescriptions. Patient does again come to [facility] with similar presentation with bloody stool that has worsened for the past 4 days as well as epigastric pain. Patient was seen with a hemoglobin of 6.7 and hematocrit of 22.5. He was slightly tachycardic likely secondary to his anemia. Patient denies any chest pain or shortness of breath however does report some epigastric pain. He does report having history of GERD. Initial chest x-ray was noted to be unremarkable. We will evaluate him for the aformentiond issues. ROS 12 point review of systems obtained and entirely negative except as mentioned in the history of present illness PMH/Family/Social Past Medical History Medical/surgical history alcoholic liver disease with cirrhosis with history of esophageal varices status post banding 3 as well as TIPS procedure, peptic ulcer disease, cholelithiasis, alcohol abuse (quit 9 years ago), pancreatitis, anemia from GI bleed, Past Surgical History Past Surgical Hx: endoscopy Family History Significant Family History: no pertinent family hx Social History Alcohol Use: other (Previous alcohol drinker) Smoking Status: Never smoker Drug Use: none Exam/Review of Systems Vital Signs Vitals Vital Signs Date Time Temp Pulse Resp B/P Pulse Ox O2 Delivery O2 Flow Rate FiO2 12/19/16 16:39 104 16 118/78 98 Room Air 12/19/16 13:39 99.2 Exam Constitutional: alert, oriented Psych: anxiety Head: normocephalic Neck: supple Respiratory: normal air movement Cardiovascular: regular rate and rhythm Gastrointestinal: soft, tender (More in epigastric area) Musculoskeletal: nl extremities to inspection, nl gait and stance Extremities: normal pulses Neurological: CERTIFIED MEDICAL ASST II-XII intact, nl mental status, nl speech Skin: nl turgor Labs Result Diagram: 12/19/16 1501 12/19/16 1501 Medications Medications Current Medications Sodium Chloride (NS) 1,000 ml @ 60 mls/hr [id number] IV ; Start 12/19/16 at 16:33 Ondansetron HCl (Zofran Inj) 4 mg Q6H PRN IV NAUSEA AND/OR VOMITING; Start at 17:00 Acetaminophen (Tylenol Tab) 650 mg Q6H PRN PO PAIN LEVEL 1-3 OR FEVER; Start at 17:00 Acetaminophen (Tylenol Supp) 650 mg Q6H PRN [place] PAIN LEVEL 1-3 OR FEVER; Start 12/19/16 at 17:00 Acetaminophen/ Hydrocodone Bitart ([place] (5/325)) 1 tab Q6H PRN PO MODERATE PAIN LEVEL 4-6; Start 12/19/16 at 17:00 Acetaminophen/ Hydrocodone Bitart ([place] (5/325)) 2 tab Q6H PRN PO SEVERE PAIN LEVEL 7-10; Start 12/19/16 at 17:00 Morphine Sulfate (morphine) 2 mg Q4H PRN IV SEVERE PAIN LEVEL 7-10; Start 12/19 at 17:00 Docusate Sodium (Colace) 100 mg Q12H PRN PO CONSTIPATION; Start 12/19/16 at 17: 00 Pantoprazole (Protonix Iv) 40 mg BID@06,18 IV ; Start 12/19/16 at 18:00 Sucralfate (Carafate) 1 gm ONCE ONCE PO ; Start 12/19/16 at 17:00; Stop at 17:01 DYAN STAFFORD Dec 19, 2016 16:58
[2016-12-19] MEDS ORDERED: ACETAMINOPHEN 325 MG TAB PO PRN (17:00)
[2016-12-19] MEDS ORDERED: ONDANSETRON 4 MG INJ IV PRN (17:00)
[2016-12-19] MEDS ORDERED: SUCRALFATE 1 GM TAB PO ONE (17:00)
[2016-12-19] MEDS ORDERED: NACL 0.9% 3 ML SYG IV SCH (17:00)
[2016-12-19] MEDS ORDERED: DOCUSATE SODIUM 100 MG CAP PO PRN (17:00)
[2016-12-19] MEDS ORDERED: ACETAMINOPHEN 650 MG SUPP PR PRN (17:00)
[2016-12-19] MEDS ORDERED: HYDROCODONE/APAP (5/325) TAB PO PRN ×2 (17:00)
[2016-12-19] MEDS ORDERED: morphine 2 MG INJ IV PRN (17:00)
[2016-12-19] MEDS: SOD CHLORIDE 0.9% 1,000 ML IV SCH ×2 (17:30→21:15)
[2016-12-19 17:49] LABS: IRON 85 ug/dl (35-150)
[2016-12-19 17:59] LABS: TOTAL IRON BINDING CAPACITY 364 ug/dl (241-421)
[2016-12-19] MEDS ORDERED: PANTOPRAZOLE 40 MG INJ IV SCH (18:00)
[2016-12-19] MEDS ORDERED: ETOMIDATE 20 MG INJ ONE (18:02)
[2016-12-19] MEDS ORDERED: LIDOCAINE 2% (SDV) 5 ML INJ ONE (18:02)
[2016-12-19] MEDS ORDERED: PROPOFOL 20 ML ONE (18:02)
[2016-12-19] MEDS ORDERED: MIDAZOLAM 1 MG/ML 2 ML INJ ONE (18:02)
--- NOTE | 2016-12-19 18:29 | OPPN ---
Date/Time of Note Date/Time of Note DATE: 12/19/16 TIME: 18:26 Operative Report Preoperative Diagnosis GI bleeding/hematochezia History of esophageal varices History of cirrhosis of the liver Postoperative Diagnosis Impression: * Grade III/IV esophageal varices with evidence of recent bleeding. * Large amounts of relatively fresh blood in the stomach * Small fundal gastric varices * Post EVL 4 Plan: * Transferred to ICU * Transfuse as soon as possible * Octreotide and Protonix drip * Close monitoring . Operation/Procedure Performed EGD plus endoscopic variceal ligation Provider: PATRICK FREDERICK MD Anesthesia Type: MAC Estimated blood loss: 50 - 100 ml's Transfusion Required: no Specimen: none Grafts/Implants: none Complications: no PATRICK FREDERICK MD Dec 19, 2016 18:29
--- NOTE | 2016-12-19 18:35 | CONS ---
Date/Time of Note Date/Time of Note DATE: 12/19/16 TIME: 18:30 Assessment/Plan Assessment/Plan Additional Assessment/Plan Impression: * GI bleeding/hematochezia * Rule out lower GI bleeding versus upper GI bleeding i.e. variceal * Severe anemia * History of esophageal varices post-banding many years prior * History of alcoholic cirrhosis * Abstinent 9 years Plan: * Emergency endoscopy to rule out upper GI bleeding i.e. varices which may represent life-threatening emergency * Further recommendation will depend on findings Consultation Date/Type/Reason Admit Date/Time Date of Consultation: Dec 19, 2016 Type of Consultation: GI Reason for Consultation GI bleeding/hematochezia Hx of Present Illness 41-year-old male with history of alcoholic cirrhosis, abstinent for more than 9 years, previously found esophageal varices post endoscopic variceal ligation, poor compliance with follow-up, has not seen anybody for several years. He was hospitalized briefly in June 2016 with an episode of GI bleeding but he refused endoscopic examination out of concern of losing his job. He did well with no further bleeding during several months. He presented today to the emergency room complaining of bright red blood per rectum his hemoglobin is 6.7 his vital signs are stable. He felt nauseous but has not vomited. At this point the patient appears comfortable but given his previous history of varices the severity of his anemia the possibility of upper GI bleeding specifically varices cannot be ruled out and for this reason we will proceed with EGD on an emergency basis. The patient has been informed and and is agreeable to proceed. Constitutional: improved, no complaints Eyes: no complaints ENT: no complaints Respiratory: no complaints Cardiovascular: no complaints Gastrointestinal: other (See history of present illness) Genitourinary: no complaints Musculoskeletal: no complaints Skin: no complaints Neurologic: no complaints Endocrine: no complaints Lymphatic: no complaints Psychological: anxiety Immunologic: no complaints Past Medical History Cirrhosis of the liver Esophageal varices post EVL Poor compliance Past Surgical History Past Surgical Hx: no surgical history, endoscopy Family History Significant Family History: no pertinent family hx Social History Alcohol Use: sober (Previous alcohol drinker/sober for at least 9 years) Smoking Status: Never smoker Drug Use: none Exam/Review of Systems Vital Signs Vitals Vital Signs Date Time Temp Pulse Resp B/P Pulse Ox O2 Delivery O2 Flow Rate FiO2 12/19/16 17:50 104 18 111/77 100 Room Air 12/19/16 17:29 98.6 Exam Constitutional: alert, oriented, well developed Psych: nl mood/affect, no complaints Head: atraumatic, normocephalic Eyes: EOMI, PERRL, nl conjunctiva, nl lids, nl sclera ENMT: nl external ears & nose, nl lips & teeth, nl nasal mucosa & septum Neck: non-tender, supple Respiratory: clear to auscultation, normal air movement Cardiovascular: nl pulses, regular rate and rhythm Gastrointestinal: nl liver, spleen, non-tender, soft Musculoskeletal: nl extremities to inspection Extremities: normal pulses 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, nl mental status, nl speech, nl strength Skin: nl turgor, No rash or lesions Lymph: nl lymph nodes Results Result Diagram: 12/19/16 1501 12/19/16 1501 Results 24 hrs Laboratory Tests Test 12/19/16 14:00 12/19/16 15:01 Iron Level 85 Total Iron Binding Capacity 364 Percent Iron Saturation 23 White Blood Count 7.7 # Red Blood Count 3.61 #L Hemoglobin 6.7 *L Hematocrit 22.5 L Mean Corpuscular Volume 62.3 #L Mean Corpuscular Hemoglobin 18.6 #L Mean Corpuscular Hemoglobin Concent 29.8 L Red Cell Distribution Width 21.9 H Platelet Count 88 L Mean Platelet Volume Neutrophils % Segmented Neutrophils % (Manual) 65 Lymphocytes % Lymphocytes % (Manual) 29 Monocytes % Monocytes % (Manual) 4 Eosinophils % Eosinophils % (Manual) 2 Basophils % Nucleated Red Blood Cells % 1 H Neutrophils # (Manual) Absolute Lymphocytes (Manual) 2.2 Lymphocytes # Monocytes # Absolute Monocytes (Manual) 0.3 Eosinophils # Basophils # Nucleated Red Blood Cells # Platelet Estimate DECREASED Polychromasia 1+ Hypochromasia 1+ Poikilocytosis 1+ Anisocytosis 2+ Microcytosis 2+ Prothrombin Time 16.5 H Prothrombin Time Ratio 1.3 INR International Normalized Ratio 1.32 Activated Partial Thromboplast Time 31.3 Sodium Level 135 Potassium Level 4.2 Chloride Level 105 Carbon Dioxide Level 25 Anion Gap 9 Blood Urea Nitrogen 17 Creatinine 0.60 L Glucose Level 172 Calcium Level 8.5 Total Bilirubin 0.8 Direct Bilirubin 0.00 Indirect Bilirubin 0.8 Aspartate Amino Transf (AST/SGOT) 55 H Alanine Aminotransferase (ALT/SGPT) 65 Alkaline Phosphatase 119 Total Protein 6.5 Albumin 3.2 L Globulin 3.30 H Albumin/Globulin Ratio 0.96 Lipase 238 Ethyl Alcohol Level < 10.0 Medications Medications Current Medications Sodium Chloride (NS) 1,000 ml @ 60 mls/hr [id number] IV Last administered on 12/19 17:30; Admin Dose 60 MLS/HR; Start 12/19/16 at 16:33 Ondansetron HCl (Zofran Inj) 4 mg Q6H PRN IV NAUSEA AND/OR VOMITING; Start at 17:00 Acetaminophen (Tylenol Tab) 650 mg Q6H PRN PO PAIN LEVEL 1-3 OR FEVER; Start at 17:00 Acetaminophen (Tylenol Supp) 650 mg Q6H PRN [place] PAIN LEVEL 1-3 OR FEVER; Start 12/19/16 at 17:00 Acetaminophen/ Hydrocodone Bitart ([place] (5/325)) 1 tab Q6H PRN PO MODERATE PAIN LEVEL 4-6; Start 12/19/16 at 17:00 Acetaminophen/ Hydrocodone Bitart ([place] (5/325)) 2 tab Q6H PRN PO SEVERE PAIN LEVEL 7-10; Start 12/19/16 at 17:00 Morphine Sulfate (morphine) 2 mg Q4H PRN IV SEVERE PAIN LEVEL 7-10; Start 12/19 at 17:00 Docusate Sodium (Colace) 100 mg Q12H PRN PO CONSTIPATION; Start 12/19/16 at 17: 00 Pantoprazole (Protonix Iv) 40 mg BID@06,18 IV Last administered on 12/19/16 17 :32; Admin Dose 40 MG; Start 12/19/16 at 18:00 PATRICK FREDERICK MD Dec 19, 2016 18:35
[2016-12-19] MEDS ORDERED: OCTREOTIDE 1 MG in SOD CHLORIDE 0.9% 95 ML IV SCH (20:00)
[2016-12-19] MEDS: PANTOPRAZOLE IV 80 MG in SOD CHLORIDE 0.9% 100 ML IV SCH (21:15)
[2016-12-20] VITALS (42 sets, daily range): BP systolic 92–122; BP diastolic 54–83; PULSE 58–97; RESP 12–22
[2016-12-20 04:29] LABS: HEMATOCRIT 22.6 % (42.0-52.0)
[2016-12-20 04:43] LABS: ALBUMIN 2.6 g/dl (3.3-4.9); ALBUMIN/GLOBULIN RATIO 0.89; BILIRUBIN,INDIRECT 0.9 mg/dl (0-1.1); BILIRUBIN,TOTAL 0.9 mg/dl (0.2-1.3); CALCIUM 7.6 mg/dl (8.4-10.2); CHOL/HDL RATIO 3.3 RATIO; CREATININE 0.69 mg/dl (0.61-1.24); MAGNESIUM 1.7 mg/dl (1.7-2.5); PHOSPHORUS 2.8 mg/dl (2.5-4.9); POTASSIUM 4.4 mmol/L (3.5-5.1); TOTAL PROTEIN 5.5 g/dl (6.1-8.1)
[2016-12-20 05:28] LABS: THYROID STIMULATING HORMONE 0.885 MIU/L (0.465-4.680)
[2016-12-20 05:43] LABS: T3 UPTAKE 50.1 % (23.5-40.5)
[2016-12-20] MEDS: PANTOPRAZOLE IV 80 MG in SOD CHLORIDE 0.9% 100 ML IV SCH (06:10)
[2016-12-20 13:33] LABS: HEMATOCRIT 25.7 % (42.0-52.0); HEMOGLOBIN 8.1 g/dl (14.0-18.0)
--- NOTE | 2016-12-20 14:28 | PN ---
Date/Time of Note Date/Time of Note DATE: 12/20/16 TIME: 14:22 Assessment/Plan VTE Prophylaxis VTE Prophylaxis Intervention: SCD's Lines/Catheters IV C[facility] Type (from [facility]): Peripheral IV Assessment/Plan Assessment/Plan Assessment * GI bleeding/hematochezia * EGD Grade III/IV esophageal varices with evidence of recent bleeding. * Large amounts of relatively fresh blood in the stomach * Small fundal gastric varices * Post EVL 4 * Severe anemia * History of esophageal varices post-banding many years prior * History of alcoholic cirrhosis * Abstinent 9 years Plan * continue present management * case discussed with DR Davison * further orders will depend on clinical course Subjective 24 Hr Interval Summary Free Text/Dictation * Course reviewed with RN * Patient seen and examined * EGD Grade III/IV esophageal varices with evidence of recent bleeding. * Large amounts of relatively fresh blood in the stomach * Small fundal gastric varices * Post EVL 4 Exam/Review of Systems Vital Signs Vitals Vital Signs Date Time Temp Pulse Resp B/P Pulse Ox O2 Delivery O2 Flow Rate FiO2 12/20/16 12:00 85 12/20/16 10:15 16 112/64 100 12/20/16 10:00 Room Air 12/20/16 08:00 98.2 Intake and Output 12/19/16 12/19/16 12/20/16 15:00 23:00 07:00 Intake Total 380 ml 905 ml Balance 380 ml 905 ml Exam Constitutional: alert, oriented Neck: non-tender, supple Respiratory: clear to auscultation, normal air movement Cardiovascular: nl pulses, regular rate and rhythm Gastrointestinal: non-tender, soft Musculoskeletal: nl extremities to inspection, nl gait and stance Extremities: normal pulses Skin: nl turgor, No rash or lesions Lymph: nl lymph nodes Results Result Diagram: 12/20/16 1316 12/20/16 0350 Results 24 hrs Laboratory Tests Test 12/19/16 15:01 12/20/16 03:50 12/20/16 05:04 12/20/16 13:16 White Blood Count 7.7 # Red Blood Count 3.61 #L Hemoglobin 6.7 *L 7.0 L 8.1 L Hematocrit 22.5 L 22.6 L 25.7 L Mean Corpuscular Volume 62.3 #L Mean Corpuscular Hemoglobin 18.6 #L Mean Corpuscular Hemoglobin Concent 29.8 L Red Cell Distribution Width 21.9 H Platelet Count 88 L Mean Platelet Volume Neutrophils % Segmented Neutrophils % (Manual) 65 Lymphocytes % Lymphocytes % (Manual) 29 Monocytes % Monocytes % (Manual) 4 Eosinophils % Eosinophils % (Manual) 2 Basophils % Nucleated Red Blood Cells % 1 H Neutrophils # (Manual) Absolute Lymphocytes (Manual) 2.2 Lymphocytes # Monocytes # Absolute Monocytes (Manual) 0.3 Eosinophils # Basophils # Nucleated Red Blood Cells # Platelet Estimate DECREASED Polychromasia 1+ Hypochromasia 1+ Poikilocytosis 1+ Anisocytosis 2+ Microcytosis 2+ Prothrombin Time 16.5 H Prothrombin Time Ratio 1.3 INR International Normalized Ratio 1.32 Activated Partial Thromboplast Time 31.3 Sodium Level 135 136 Potassium Level 4.2 4.4 Chloride Level 105 110 Carbon Dioxide Level 25 23 Anion Gap 9 7 L Blood Urea Nitrogen 17 17 Creatinine 0.60 L 0.69 Glucose Level 172 138 Calcium Level 8.5 7.6 L Total Bilirubin 0.8 0.9 Direct Bilirubin 0.00 0.00 Indirect Bilirubin 0.8 0.9 Aspartate Amino Transf (AST/SGOT) 55 H 56 H Alanine Aminotransferase (ALT/SGPT) 65 57 Alkaline Phosphatase 119 85 Total Protein 6.5 5.5 #L Albumin 3.2 L 2.6 L Globulin 3.30 H 2.90 Albumin/Globulin Ratio 0.96 0.89 Lipase 238 Ethyl Alcohol Level < 10.0 Hemoglobin A1c 6.1 H Phosphorus Level 2.8 Magnesium Level 1.7 Triglycerides Level 110 Cholesterol Level 95 L LDL Cholesterol, Calculated 45 HDL Cholesterol 28 Cholesterol/HDL Ratio 3.3 Thyroid Stimulating Hormone (TSH) 0.885 Free Thyroxine Index 2.25 Thyroxine (T4) 4.5 L Triiodothyronine (T3) Uptake 50.1 H Lab Scanned Report BLOOD TRANSFUSION Medications Medications Current Medications Sodium Chloride (NS) 1,000 ml @ 60 mls/hr [id number] IV Last administered on 12/19t 21:15; Admin Dose 60 MLS/HR; Start 12/19/16 at 16:33 Ondansetron HCl (Zofran Inj) 4 mg Q6H PRN IV NAUSEA AND/OR VOMITING; Start at 17:00 Acetaminophen (Tylenol Tab) 650 mg Q6H PRN PO PAIN LEVEL 1-3 OR FEVER; Start at 17:00 Acetaminophen (Tylenol Supp) 650 mg Q6H PRN [place] PAIN LEVEL 1-3 OR FEVER; Start 12/19/16 at 17:00 Acetaminophen/ Hydrocodone Bitart ([place] (5/325)) 1 tab Q6H PRN PO MODERATE PAIN LEVEL 4-6; Start 12/19/16 at 17:00 Acetaminophen/ Hydrocodone Bitart ([place] (5/325)) 2 tab Q6H PRN PO SEVERE PAIN LEVEL 7-10; Start 12/19/16 at 17:00 Morphine Sulfate (morphine) 2 mg Q4H PRN IV SEVERE PAIN LEVEL 7-10 Last administered on 12/19/16 20:01; Admin Dose 2 MG; Start 12/19/16 at 17:00 Docusate Sodium 100 mg 100 mg Q12H PRN PO CONSTIPATION; Start 12/19/16 at 17:00 Octreotide Acetate 1 mg/ Sodium Chloride 100 ml @ 5 mls/hr Q20H IV Last administered on 12/19/16 21:15; Admin Dose 5 MLS/HR; Start 12/19/16 at 20:00 Pantoprazole/ Sodium Chloride (Protonix Iv/NS) 100 ml @ 10 mls/hr Q10H IV Last administered on 12/20/16 06:10; Admin Dose 10 MLS/HR; Start 12/19/16 at 20 :00 KAMILLE MAYFIELD NP Dec 20, 2016 14:28
--- NOTE | 2016-12-20 14:52 | PN ---
Date/Time of Note Date/Time of Note DATE: 12/20/16 TIME: 14:50 Assessment/Plan VTE Prophylaxis VTE Prophylaxis Intervention: contraindicated Lines/Catheters IV [facility] (from [facility] Peripheral IV Assessment/Plan Chief Complaint/Hosp Course Impression and plan 1. GI bleed. Patient with reported multiple bloody bowel movements. Patient status post EGD with grade 3-4 esophageal varices seen again with evidence of recent bleeding and patient again status post banding and ligation of varices. Continue PPI medication. Monitor serial H&H. Continue Protonix. 2. Anemia from #1. Monitor H&H. transfuse prbc as needed. stable at this time 3. Thrombocytopenia. Likely secondary to underlying history of alcoholic liver cirrhosis. Monitor H&H for now. Monitor level. Transfuse blood products as needed. 4. History of alcoholic liver disease. No further reports of alcohol consumption. Monitor for now. 5. History of esophageal varices status post banding and TIPS. Core Driller to be consulted. We will follow-up 6. History of GERD. Start on PPI medication. Disposition and plan: Anemia improving. Monitor serial H&H. Transfer out of ICU and cleared by organizational effectiveness consultant. Discussed plan of care with Dr. Gallego Problems: Subjective 24 Hr Interval Summary Free Text/Dictation Appears to be improving at this time. Still reports having 1 bloody movement. No other specific complaints. No reports of abdominal pain at this time. 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, nl mental status, nl speech Skin: nl turgor Results Result Diagram: 12/20/16 1316 12/20/16 0350 Results 24 hrs Laboratory Tests Test 12/19/16 15:01 12/20/16 03:50 12/20/16 05:04 12/20/16 13:16 White Blood Count 7.7 # Red Blood Count 3.61 #L Hemoglobin 6.7 *L 7.0 L 8.1 L Hematocrit 22.5 L 22.6 L 25.7 L Mean Corpuscular Volume 62.3 #L Mean Corpuscular Hemoglobin 18.6 #L Mean Corpuscular Hemoglobin Concent 29.8 L Red Cell Distribution Width 21.9 H Platelet Count 88 L Mean Platelet Volume Neutrophils % Segmented Neutrophils % (Manual) 65 Lymphocytes % Lymphocytes % (Manual) 29 Monocytes % Monocytes % (Manual) 4 Eosinophils % Eosinophils % (Manual) 2 Basophils % Nucleated Red Blood Cells % 1 H Neutrophils # (Manual) Absolute Lymphocytes (Manual) 2.2 Lymphocytes # Monocytes # Absolute Monocytes (Manual) 0.3 Eosinophils # Basophils # Nucleated Red Blood Cells # Platelet Estimate DECREASED Polychromasia 1+ Hypochromasia 1+ Poikilocytosis 1+ Anisocytosis 2+ Microcytosis 2+ Prothrombin Time 16.5 H Prothrombin Time Ratio 1.3 INR International Normalized Ratio 1.32 Activated Partial Thromboplast Time 31.3 Sodium Level 135 136 Potassium Level 4.2 4.4 Chloride Level 105 110 Carbon Dioxide Level 25 23 Anion Gap 9 7 L Blood Urea Nitrogen 17 17 Creatinine 0.60 L 0.69 Glucose Level 172 138 Calcium Level 8.5 7.6 L Total Bilirubin 0.8 0.9 Direct Bilirubin 0.00 0.00 Indirect Bilirubin 0.8 0.9 Aspartate Amino Transf (AST/SGOT) 55 H 56 H Alanine Aminotransferase (ALT/SGPT) 65 57 Alkaline Phosphatase 119 85 Total Protein 6.5 5.5 #L Albumin 3.2 L 2.6 L Globulin 3.30 H 2.90 Albumin/Globulin Ratio 0.96 0.89 Lipase 238 Ethyl Alcohol Level < 10.0 Hemoglobin A1c 6.1 H Phosphorus Level 2.8 Magnesium Level 1.7 Triglycerides Level 110 Cholesterol Level 95 L LDL Cholesterol, Calculated 45 HDL Cholesterol 28 Cholesterol/HDL Ratio 3.3 Thyroid Stimulating Hormone (TSH) 0.885 Free Thyroxine Index 2.25 Thyroxine (T4) 4.5 L Triiodothyronine (T3) Uptake 50.1 H Lab Scanned Report BLOOD TRANSFUSION Medications Medications Current Medications Sodium Chloride (NS) 1,000 ml @ 60 mls/hr [id number] IV Last administered on 12/19 21:15; Admin Dose 60 MLS/HR; Start 12/19/16 at 16:33 Ondansetron HCl (Zofran Inj) 4 mg Q6H PRN IV NAUSEA AND/OR VOMITING; Start at 17:00 Acetaminophen (Tylenol Tab) 650 mg Q6H PRN PO PAIN LEVEL 1-3 OR FEVER; Start at 17:00 Acetaminophen (Tylenol Supp) 650 mg Q6H PRN [place] PAIN LEVEL 1-3 OR FEVER; Start 12/19/16 at 17:00 Acetaminophen/ Hydrocodone Bitart ([place] (5/325)) 1 tab Q6H PRN PO MODERATE PAIN LEVEL 4-6; Start 12/19/16 at 17:00 Acetaminophen/ Hydrocodone Bitart ([place] (5/325)) 2 tab Q6H PRN PO SEVERE PAIN LEVEL 7-10; Start 12/19/16 at 17:00 Morphine Sulfate (morphine) 2 mg Q4H PRN IV SEVERE PAIN LEVEL 7-10 Last administered on 12/19/16 20:01; Admin Dose 2 MG; Start 12/19/16 at 17:00 Docusate Sodium 100 mg 100 mg Q12H PRN PO CONSTIPATION; Start 12/19/16 at 17:00 Octreotide Acetate 1 mg/ Sodium Chloride 100 ml @ 5 mls/hr Q20H IV Last administered on 12/19/16 21:15; Admin Dose 5 MLS/HR; Start 12/19/16 at 20:00 Pantoprazole/ Sodium Chloride (Protonix Iv/NS) 100 ml @ 10 mls/hr Q10H IV Last administered on 12/20/16 06:10; Admin Dose 10 MLS/HR; Start 12/19/16 at 20 :00 DYAN STAFFORD Dec 20, 2016 14:52
--- NOTE | 2016-12-22 11:07 | GILP ---
DATE OF PROCEDURE: 12/22/2016 PROCEDURE: Esophagogastroduodenoscopy with endoscopic variceal ligation. HISTORY AND INDICATIONS: Patient is being evaluated for GI bleeding, history of cirrhosis, history of esophageal varices. PREMEDICATION: Monitored anesthesia care by anesthesiologist. INSTRUMENT USED: Olympus endoscope. TECHNIQUE: After informed consent, with the patient/relatives understanding the procedure, its indications, potential risks and complications, including but not limited to: allergic reaction, bleeding, perforation or infection, and after all pertinent questions were answered to the patients satisfaction, the patient/relatives signed witnessed informed consent. Following this, premedication was administered slowly IV push under careful cardiovascular and respiratory monitoring with pulse oximetry, automatic blood pressure and electric transfer operator. Once the sedative effect was achieved the patient was place in the left lateral decubitus, the panendoscope was introduced and advanced under visual control. Careful examination of the upper gastrointestinal tract, both on insertion as well as withdrawal of the instrument disclosed the following findings: ESOPHAGUS: The distal esophagus shows grade 3/4 esophageal varices with evidence of recent bleeding. STOMACH: Upon entrance to the stomach air was insufflated, the gastric angel distended normally. There were large amounts of relatively fresh blood in the stomach that preclude optimal examination, but no bleeding site was identified. Small fundal gastric varices are present with no evidence of bleeding. PYLORUS: The pylorus appears patent and within normal limits, with no evidence of gastric outlet obstruction. DUODENUM: The duodenal mucosa was carefully examined in the duodenal bulb as well as the second portion of the duodenum and appears unremarkable with no evidence of duodenitis, ulcer or neoplasm. At this point, the instrument was then withdrawn. The banding device was applied to the tip of the endoscope. The endoscope was then reintroduced and endoscopic variceal ligation was applied to the 4 more prominent variceal channels with no evidence of residual, bleeding or complication. The patient tolerated the procedure well and was transfer out of the endoscopy suite awake, and in good condition to continue recovery under observation. IMPRESSION: 1. Grade 3/4 esophageal varices with evidence of recent bleeding, post endoscopic variceal ligation x4. 2. Large amounts of fresh blood in the stomach preclude adequate examination of the stomach. 3. Small fundal gastric varices with no evidence of bleeding. 4. Otherwise, negative EGD. RECOMMENDATIONS: The patient will be transferred to ICU, transfused as soon as possible after and Protonix drips will be instituted and further recommendation will depend on patient's clinical course. Dictated By: Sharda Davison MD /roman/terrie /Document#: [id number]
== END 2016-12-20 17:15 | disposition left against medical advice (07) | DRG 432 ==
LOC: E/R 13:30 → MS4 16:10 → ICU 17:50
PROVIDERS: ADMIT Internal Medicine; ATTEND Internal Medicine
PROC: 30233N1 Transfusion of Nonautologous Red Blood Cells into Peripheral Vein, Percutaneous Approach (ICD-10-PCS; 2016-12-19)
PROC: 0W3P8ZZ Control Bleeding in Gastrointestinal Tract, Via Natural or Artificial Opening Endoscopic (ICD-10-PCS; principal; 2016-12-19 18:30)
DX: K70.30 Alcoholic cirrhosis of liver without ascites (principal); I85.11 Secondary esophageal varices with bleeding; D69.59 Other secondary thrombocytopenia; D50.0 Iron deficiency anemia secondary to blood loss (chronic); I86.4 Gastric varices; F10.10 Alcohol abuse, uncomplicated; Z87.11 Personal history of peptic ulcer disease
CPT/HCPCS: 36415; 36430; 71010; 80053; 80061; 80306; 83036; 83540; 83690; 83735; 84100; 84436; 84443; 84479; 85014; 85018; 85025; 85610; 85730; 86850; 86900; 86901; 86920; 87081; C9113; J2250; J2270; J7030; P9016

== ENCOUNTER 2019-01-14 12:05 | Inpatient (IN) | payer MEDICAID ==
[~2019-01-14] VITALS: Ht 172.7 cm; Wt 91.6 kg
[~2019-01-14 12:05] MED LIST changes: +ACET-141 PO; -DOCU-144 PO; -FER325 PO; +HYDR-4011 PO; +IBUP-1542 PO; -IBUP400T22 PO; +LAS20 PO; +ONDA4TAB14 PO; +PANT40TA3 PO; +PROP10TA6 PO; +SPIR50TA PO; -TRAM50TA2 PO
[2019-01-14 12:11] VITALS: Ht 172.7 cm; Wt 91.6 kg
[2019-01-14] MEDS ORDERED: PANTOPRAZOLE 40 MG INJ IV STA (12:57)
[2019-01-14] MEDS ORDERED: OCTREOTIDE 50 MCG in SOD CHLORIDE 0.9% 25 ML IVPB STA (12:57)
[2019-01-14] MEDS ORDERED: SOD CHLORIDE 0.9% 0 ML IV ONE (14:34)
[2019-01-14] MEDS ORDERED: ACETAMINOPHEN 325 MG TAB PO PRN ×2 (15:00→17:30)
[2019-01-14] MEDS ORDERED: ONDANSETRON 4 MG INJ IV PRN ×2 (15:00→17:30)
[2019-01-14] MEDS ORDERED: CEFTRIAXONE 1 GM/50 ML (PMX) 50 ML IVPB STA (15:27)
[2019-01-14 16:56] VITALS: BP 119/67; PULSE 71; RESP 17
[2019-01-14] MEDS ORDERED: HYDROCODONE/APAP (5/325) TAB PO PRN (17:30)
[2019-01-14] MEDS ORDERED: NACL 0.9% 3 ML SYG IV SCH (17:30)
[2019-01-14] MEDS ORDERED: BISACODYL 10 MG SUPP PR PRN (17:30)
[2019-01-14] MEDS ORDERED: SOD CHLORIDE 0.9% 500 ML IV ONE (17:30)
[2019-01-14] MEDS ORDERED: ACETAMINOPHEN 650 MG SUPP PR PRN (17:30)
[2019-01-14] MEDS ORDERED: DOCUSATE SODIUM 100 MG CAP PO PRN (17:30)
[2019-01-14] MEDS ORDERED: MAGNESIUM HYDROXIDE 30ML CUP PO PRN (17:30)
[2019-01-14] MEDS ORDERED: morphine 2 MG INJ IV PRN (17:30)
[2019-01-14] MEDS: DEXTROSE 5%-0.45% NACL 1,000 ML IV SCH (18:52)
[2019-01-14] MEDS: PANTOPRAZOLE IV 80 MG in SOD CHLORIDE 0.9% 100 ML IV SCH (19:57)
[2019-01-14] MEDS: OCTREOTIDE 500 MCG in DEXTROSE 5% 49 ML IV SCH (19:57)
[2019-01-14 20:00] VITALS: BP 121/67; PULSE 68; RESP 18
[2019-01-15] VITALS (13 sets, daily range): BP systolic 96–134; BP diastolic 55–77; PULSE 60–78; RESP 13–22
[2019-01-15] MEDS: DEXTROSE 5%-0.45% NACL 1,000 ML IV SCH ×2 (03:53→13:21)
[2019-01-15] MEDS: PANTOPRAZOLE IV 80 MG in SOD CHLORIDE 0.9% 100 ML IV SCH ×3 (04:37→23:45)
[2019-01-15] MEDS: OCTREOTIDE 500 MCG in DEXTROSE 5% 49 ML IV SCH ×2 (09:31→22:09)
[2019-01-15] MEDS ORDERED: FENTAnyl 50 MCG/ML VIAL ONE (17:44)
[2019-01-15] MEDS ORDERED: PROPOFOL 20 ML ONE (17:44)
[2019-01-15] MEDS: CEFTRIAXONE 2 GM/50 ML (PMX) 50 ML IVPB SCH (18:53)
[2019-01-16] MEDS: DEXTROSE 5%-0.45% NACL 1,000 ML IV SCH ×2 (00:39→09:36)
[2019-01-16 04:00] VITALS: BP 97/51; PULSE 62; RESP 18
[2019-01-16 07:57] VITALS: BP 106/66; PULSE 62; RESP 20
[2019-01-16] MEDS ORDERED: MAGNESIUM SULFATE 2 GM/50 ML 50 ML IVPB ONE (09:30)
[2019-01-16] MEDS: PANTOPRAZOLE IV 80 MG in SOD CHLORIDE 0.9% 100 ML IV SCH (09:38)
[2019-01-16 11:26] VITALS: BP 120/76; PULSE 61; RESP 20
[2019-01-16] MEDS: FUROSEMIDE 20 MG TAB PO SCH (11:34)
[2019-01-16 15:27] VITALS: BP 124/75; PULSE 64; RESP 20
[2019-01-16] MEDS: SPIRONOLACTONE 50 MG TAB PO SCH (17:25)
[2019-01-16] MEDS: PANTOPRAZOLE 40 MG INJ IV SCH (17:25)
[2019-01-16] MEDS: CEFTRIAXONE 2 GM/50 ML (PMX) 50 ML IVPB SCH (17:32)
[2019-01-16 19:51] VITALS: BP 113/68; PULSE 77; RESP 17
[2019-01-16] MEDS: PROPRANOLOL 10 MG TAB PO SCH (20:30)
[2019-01-16] MEDS: PIPER-TAZO 3.375 GM IV (PMX) 100 ML IVPB SCH (23:39)
[2019-01-16 23:47] VITALS: BP 104/55; PULSE 63; RESP 14
[2019-01-17 01:59] VITALS: BP 129/70; PULSE 93; RESP 17
[2019-01-17 04:00] VITALS: BP 101/55; PULSE 59; RESP 18
[2019-01-17] MEDS: SPIRONOLACTONE 50 MG TAB PO SCH (05:44)
[2019-01-17] MEDS: PANTOPRAZOLE 40 MG INJ IV SCH (05:44)
[2019-01-17] MEDS: PIPER-TAZO 3.375 GM IV (PMX) 100 ML IVPB SCH ×2 (05:44→14:52)
[2019-01-17 07:29] VITALS: BP 101/70; PULSE 63; RESP 18
[2019-01-17] MEDS: FUROSEMIDE 20 MG TAB PO SCH (09:00)
[2019-01-17] MEDS ORDERED: SOD CHLORIDE 0.45% 1,000 ML IV SCH (09:30)
[2019-01-17] MEDS: PROPRANOLOL 10 MG TAB PO SCH (10:54)
[2019-01-17 11:27] VITALS: BP 98/58; PULSE 61; RESP 18
[2019-01-17 16:42] VITALS: BP 109/65; PULSE 55; RESP 18
[2019-01-17] MEDS ORDERED: SPIRONOLACTONE 25 MG TAB PO SCH (18:00)
== END 2019-01-17 17:50 | disposition home or self-care (01) | DRG 432 ==
LOC: E/R 12:05 → 6WM 14:59
PROVIDERS: ADMIT Internal Medicine; ATTEND Internal Medicine
PROC: 0DB68ZX Excision of Stomach, Via Natural or Artificial Opening Endoscopic, Diagnostic (ICD-10-PCS; 2019-01-15)
PROC: 06L38ZZ Occlusion of Esophageal Vein, Via Natural or Artificial Opening Endoscopic (ICD-10-PCS; principal; 2019-01-15 19:00)
DX: K70.30 Alcoholic cirrhosis of liver without ascites (principal); I85.11 Secondary esophageal varices with bleeding; D62 Acute posthemorrhagic anemia; D61.818 Other pancytopenia; K76.6 Portal hypertension; K76.9 Liver disease, unspecified; K31.89 Other diseases of stomach and duodenum; F10.20 Alcohol dependence, uncomplicated; K27.9 Peptic ulcer, site unspecified, unspecified as acute or chronic, without hemorrhage or perforation
CPT/HCPCS: 36415; 36430; 71045; 76705; 78226; 80048; 80053; 81003; 83036; 83690; 83735; 83880; 84100; 84443; 84484; 85014; 85018; 85025; 85610; 85730; 86850; 86900; 86901; 86920; 88305; 88312; 93005; 96374; 96375; A9537; C9113; J0696; J2354; J2543; J3010; J3475; J7040; J7042; P9016